=== PATIENT | female | born 1975 | race Caucasian/White ===

== ENCOUNTER 2016-06-03 16:08 | Emergency (ER) | payer OTHER ==
--- NOTE | 2016-06-03 16:58 | UCPHY ---
H & P Patient Type: New Time Seen by Provider: 06/03/16 16:34 HPI/ROS: HPI: 41-year-old female presents to urgent care with chief concern cough, and in need of a new primary care provider. Reports onset of dry cough 3 days ago. Denies fever, chills, nasal congestion, sore throat, shortness of breath, chest pain, nausea or vomiting. Reports chain smoking for the past month. She has been a current daily smoker for 20 years. Also requests information for a new primary care provider as I do not like my own. Has a history of bipolar. Found her brother after he committed suicide in April 2016. She has felt slightly manic and has had difficulty sleeping since that time. She takes escitalopram daily. Denies suicidal or homicidal ideation, visual or auditory hallucination. Denies alcohol or illicit drug use. She has a follow-up appointment with her primary care provider tomorrow. ROS:10 point review of systems is negative other than as stated in HPI (Shira Lozano) Physical Exam: General: Awake, alert, calm, cooperative. No acute distress. Head: Normalocephalic. Atraumatic. EENT: PERRLA. EOMI. No pallor or injection. Anicteric. No nystagmus. No injection. TMs intact bilaterally with normal landmarks. No rhinnorhea, nasal passages clear. Oropharynx without redness, exudates, or lesions. Tonsils 2+ bilaterally, no exudates. Neck: Supple, nontender. No lymphadenopathy. Full range of motion. No meningismus. Respiratory: Breathing unlabored. Breath sounds equal bilaterally and clear to auscultation. No adventitious sounds. CV: Chest nontender, atraumatic. Heart rate regular. No murmur, distal pulses 2+ bilaterally. Brisk cap refill all extremities. GI: Abdomen soft, nontender. Bowel sounds normoactive and positive x4 quadrants. Neuro: Alert. Oriented x 3. Speech clear. Nonfocal cranial nerves throughout. Sensation intact all extremities. Skin: Skin warm, dry, intact. Extremities: Full range of motion in all 4 extremities. Strength 5+ all extremities. Mental status: Interactive, over talkative, appropriate (Shira Lozano) Constitutional: Initial Vital Signs Temperature (C) 36.5 C 06/03/16 16:28 Heart Rate 108 H 06/03/16 16:28 Respiratory Rate 16 06/03/16 16:28 Blood Pressure 151/102 H 06/03/16 16:28 O2 Sat (%) 95 06/03/16 16:28 O2 Delivery Mode Room Air Allergies/Adverse Reactions: No Known Allergies Allergy (Verified 06/03/16 16:42) Home Medications: Medication Instructions Recorded Citalopram 06/03/16 Medical Decision Making ED Course/Re-evaluation: 41-year-old female presents to the urgent care with cough and difficulty sleeping due to manic symptoms. Lungs are clear to auscultation bilaterally. She is afebrile. She has been chain smoking for the past month. She has no suicidal homicidal ideation. She is requesting a referral for a new primary care provider, however she has an appointment with her own primary care provider tomorrow. Additionally, reports that she has an e-mail in her e-mail in box from her employee assistance program with psychiatrists and PCPs listed who accept her insurance. She states she has failed open this email. BP 152/ 101 on arrival, 142/88 on recheck. Have counseled her regarding need for follow -up with PCP regarding this. (Shira Lozano) Differential Diagnosis: Differential diagnosis includes but is not limited to bipolar, anxiety, sasha, URI, smoker's cough, or reactive airway disease (Shira Lozano) Other Provider: The patient was evaluated and managed by the nurse practitioner, Shira Lozano.. My co-signature indicates that I have reviewed this chart and I agree with the findings and plan of care as documented. I am the secondary supervising physician. (Teresita Desir) Departure - Departure Disposition: Home, Routine, Self-Care Clinical Impression: Cough, Bipolar 1 disorder Condition: Good Instructions: Bipolar Disorder (ED), Acute Cough (ED) Additional Instructions: Plan: Follow up with primary care as scheduled tomorrow for recheck without fail--you need to have your blood pressure monitored it was 151/102 on arrival here today. You may also get established with a new primary care provider, Brigette Rubio's information is in your paperwork Please get a psychiatrists and/or therapist from your employee assistance program, You mention do have the information in your email in box and have failed to open the mail yet. Please do so and call and get established. You may try using Doxylamine (Sleep Aid) [id number] at bedtime as needed If you develop suicidal ideation go to emergency department Referrals: IN STATE,. [Primary Care Provider] - As per Instructions Brigette Rubio, SOCIAL WORK THERAPIST [Certified Nurse Practioner] - As per Instructions - PQRS PQRS Measurement: Not applicable (Shira Lozano)
[2016-06-03 16:59] VITALS: BP 151/102; PULSE 108; RESP 16; TEMP 97.7; O2SAT 95
== END 2016-06-03 17:25 | disposition home or self-care (01) ==
LOC: CED 16:08
DX: R05 Cough (principal); F31.9 Bipolar disorder, unspecified; G47.9 Sleep disorder, unspecified; Z72.0 Tobacco use
CPT/HCPCS: G0463-PO

== ENCOUNTER 2016-06-07 13:26 | Emergency (ER) | payer OTHER ==
[2016-06-07 13:33] VITALS: TEMP 98.1; O2SAT 94
[2016-06-07 14:11] LABS: % IMMATURE GRANULYOCYTES 0.3 % (0.0-1.1); ABSOLUTE IMMATURE GRANULOCYTES 0.02 10^3/uL (0.00-0.10); ADD DIFF? NO; ADD MORPH? NO; ADD SCAN? NO; ATYPICAL LYMPHOCYTE FLAG 60 (0-99); FRAGMENT RBC FLAG 0 (0-99); HEMATOCRIT 43.1 % (38.0-47.0); LEFT SHIFT FLG 0 (0-99); LIPEMIA HEMOLYSIS FLAG 90 (0-99); MEAN CELL HEMOGLOBIN 29.4 pg (27.9-34.1); MEAN CELL HEMOGLOBIN CONCENTR. 34.8 g/dL (32.4-36.7); MEAN CELL VOLUME 84.5 fL (81.5-99.8); PLATELET CLUMPS FLAG 0 (0-99); PLATELET COUNT 377 10^3/uL (150-400); RED CELL DISTRIBUTION WIDTH 13.2 % (11.5-15.2)
--- NOTE | 2016-06-07 14:13 | EDPHY ---
H & P Stated Complaint: MANIC/NEEDS MEDS ADJUSTED Time Seen by Provider: 06/07/16 13:58 HPI/ROS: CHIEF COMPLAINT: Manic HISTORY OF PRESENT ILLNESS: The patient is a 41-year-old female who comes to the emergency department with her friend complaining that she is manic. They were seen at the primary care's office this morning and referred here. She states that her brother who was living with her shot himself in the head 1 month ago and she found the body. Since that time she has had difficulty sleeping. She has [facility] but does not have a primary psychologist or therapist. She has been taking citalopram 20 mg a day for the last 5 years not seem to work well until this month after this trauma. She denies any recent illness. She has been drinking more than usual but is not currently intoxicated. She denies any drug use. 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 She denies suicidality. She denies homicidality. REVIEW OF SYSTEMS: Constitutional: denies: chills, fever, recent illness, recent injury EENTM: denies: blurred vision, double vision, nose congestion Respiratory: denies: cough, shortness of breath Cardiac: denies: chest pain, irregular heart rate, lightheadedness, palpitations Gastrointestinal/Abdominal: denies: abdominal pain, diarrhea, nausea, vomiting, blood streaked stools Genitourinary: denies: dysuria, frequency, hematuria, pain Musculoskeletal: denies: joint pain, muscle pain Skin: denies: lesions, rash, jaundice, bruising Neurological: denies: headache, numbness, paresthesia, tingling, dizziness, weakness Hematologic/Lymphatic: denies: blood clots, easy bleeding, easy bruising Immunologic/allergic: denies: HIV/AIDS, transplant EXAM: GENERAL: Well-appearing, well-nourished and in no acute distress. HEAD: Atraumatic, normocephalic. EYES: Pupils equal round and reactive to light, extraocular movements intact, sclera anicteric, conjunctiva are normal. ENT: TMs normal, nares patent, oropharynx clear without exudates. Moist mucous membranes. NECK: Normal range of motion, supple without lymphadenopathy or JVD. LUNGS: Breath sounds clear to auscultation bilaterally and equal. No wheezes rales or rhonchi. HEART: Regular rate and rhythm without murmurs, rubs or gallops. ABDOMEN: Soft, nontender, normoactive bowel sounds. No guarding, no rebound. No masses appreciated. BACK: No CVA tenderness, no spinal tenderness, step-offs or deformities EXTREMITIES: Normal range of motion, no pitting or edema. No clubbing or cyanosis. NEUROLOGICAL: Cranial nerves II through XII grossly intact. Normal speech, normal gait. 5/5 strength, normal movement in all extremities, normal sensation PSYCH: Talkative, slightly confrontational, states that she has offended we keep asking if she was suicidal. She states that if we placed our on a hold she would call 911. SKIN: Warm, dry, normal turgor, no visible rashes or lesions. Source: Patient Exam Limitations: No limitations - Personal History LMP (Females 10-55): 1-7 Days Ago Current Tetanus/Diphtheria Vaccine: Unsure - Medical/Surgical History Hx Asthma: No Hx Chronic Respiratory Disease: No Hx Diabetes: No Hx Cardiac Disease: No Hx Renal Disease: No Hx Cirrhosis: No Hx Alcoholism: No Hx HIV/AIDS: No Hx Splenectomy or Spleen Trauma: No Other PMH: Med hx-Bipolar. [id number] - Family History Significant Family History: No pertinent family hx - Social History Smoking Status: Heavy smoker Alcohol Use: Sober Drug Use: None Constitutional: Initial Vital Signs Temperature (C) 36.7 C 06/07/16 13:29 Heart Rate 91 06/07/16 13:29 Respiratory Rate 18 06/07/16 13:29 Blood Pressure 137/95 H 06/07/16 13:29 O2 Sat (%) 94 06/07/16 13:29 O2 Delivery Mode Room Air Allergies/Adverse Reactions: No Known Allergies Allergy (Verified 06/07/16 13:28) Home Medications: Medication Instructions Recorded Citalopram 06/03/16 Dayquil 06/07/16 Medical Decision Making ED Course/Re-evaluation: The patient does appear to be manic. She is not suicidal. She does not meet criteria for an M1 hold. He will have mental health consult. She may be able to go to the walk-in clinic to meet with a prescriber. 4 p.m. the patient has been evaluated by Mental Health. They agree that she is appropriate for outpatient treatment. They will go directly to the crisis Center [facility] and see a psychiatrist on Friday. Patient and her friend understand and agree with this plan. They declined further workup or testing at this time. Differential Diagnosis: Partial list of the Differential diagnosis considered include but were not limited to; anxiety, manic and although unlikely based on the history and physical exam, I also considered infection, intoxication, overdose, suicidality. I discussed these differential diagnoses and the plan with the patient as well as the usual and expected course. The patient understands that the diagnosis is provisional and that in medicine we are not always correct and that further workup is often warranted. Usual and customary warnings were given. All of the patient's questions were answered. The patient was instructed to return to the emergency department should the symptoms at all worsen or return, otherwise to followup with the physician as we discussed. - Data Points Laboratory Results: Laboratory Results 06/07/16 14:00 06/07/16 14:00 06/07/16 14:00 WBC 7.43 10^3/uL (3.80-9.50) RBC 5.10 10^6/uL (4.18-5.33) Hgb 15.0 g/dL (12.6-16.3) Hct 43.1 % (38.0-47.0) MCV 84.5 fL (81.5-99.8) MCH 29.4 pg (27.9-34.1) MCHC 34.8 g/dL (32.4-36.7) RDW 13.2 % (11.5-15.2) Plt Count 377 10^3/uL (150-400) MPV 8.0 L fL (8.7-11.7) Neut % (Auto) 48.6 % (39.3-74.2) Lymph % (Auto) 42.9 % (15.0-45.0) Wells % (Auto) 4.8 % (4.5-13.0) Eos % (Auto) 2.7 % (0.6-7.6) Baso % (Auto) 0.7 % (0.3-1.7) Nucleat RBC Rel Count 0.0 % (0.0-0.2) Absolute Neuts (auto) 3.61 10^3/uL (1.70-6.50) Absolute Lymphs (auto) 3.19 H 10^3/uL (1.00-3.00) Absolute Monos (auto) 0.36 10^3/uL (0.30-0.80) Absolute Eos (auto) 0.20 10^3/uL (0.03-0.40) Absolute Basos (auto) 0.05 10^3/uL (0.02-0.10) Absolute Nucleated RBC 0.00 10^3/uL (0-0.01) Immature Gran % 0.3 % (0.0-1.1) Immature Gran # 0.02 10^3/uL (0.00-0.10) Sodium 143 mEq/L (134-144) Potassium 4.0 mEq/L (3.5-5.2) Chloride 108 mEq/L (97-110) Carbon Dioxide 22 mEq/l (22-31) Anion Gap 13 mEq/L (8-16) BUN 8 mg/dL (7-23) Creatinine 0.7 mg/dL (0.6-1.0) Estimated GFR > 60 Glucose 98 mg/dL (70-100) Calcium 8.7 mg/dL (8.5-10.4) TSH 1.360 uIU/mL (0.465-4.680) Beta HCG, Qual NEGATIVE Urine Opiates Screen NEGATIVE (NEGATIVE) Urine Barbiturates NEGATIVE (NEGATIVE) Ur Phencyclidine Scrn NEGATIVE (NEGATIVE) Ur Amphetamine Screen NEGATIVE (NEGATIVE) U Benzodiazepines Scrn NEGATIVE (NEGATIVE) Urine Cocaine Screen NEGATIVE (NEGATIVE) U Marijuana (THC) Screen NEGATIVE (NEGATIVE) Ethyl Alcohol 29 H mg/dL (0-10) Departure - Departure Disposition: Home, Routine, Self-Care Clinical Impression: Bipolar 1 disorder Condition: Fair Instructions: Bipolar Disorder (ED) Referrals: Brigette Rubio EPITAXIAL REACTOR OPERATOR [Primary Care Provider] - As per Instructions
[2016-06-07 14:24] LABS: ANION GAP 13 mEq/L (8-16); CALCIUM 8.7 mg/dL (8.5-10.4); CARBON DIOXIDE 22 mEq/l (22-31); CHLORIDE 108 mEq/L (97-110); CREATININE 0.7 mg/dL (0.6-1.0); ETHANOL SERUM 29 mg/dL (0-10); GLOMERULAR FILTRATION RATE > 60; GLUCOSE 98 mg/dL (70-100); SODIUM 143 mEq/L (134-144)
[2016-06-07 16:29] VITALS: BP 144/84; PULSE 98; RESP 16
== END 2016-06-07 16:28 | disposition home or self-care (01) ==
DX: F31.9 Bipolar disorder, unspecified (principal); F17.200 Nicotine dependence, unspecified, uncomplicated
CPT/HCPCS: 80305; G0480